=== PATIENT | female | born 1955 | race Caucasian/White ===

== ENCOUNTER → 2018-12-18 09:59 | Outpatient (CLI) | payer BC, SELFPAY ==
--- NOTE | 2018-12-18 | DI.RAD.S_ITS ---
PROCEDURE: XR KUB INDICATIONS: KIDNEY STONES TECHNIQUE: One view of the abdomen acquired. COMPARISON: Outside Facility, RG, CT ABDOMEN/PELVIS WITHOUT CONTRAST, 12/02/2018, 9:01. [facility], CR, XR ABDOMEN 1 VIEW, 12/11/2018, 11:20. FINDINGS: Surgical changes and devices: None. Bowel: Bowel gas pattern is normal. Soft tissues: Interval placement of a left double-J eral stent. Unchanged position of 6 mm proximal left ureter stone. Bones: No suspicious bony lesions. IMPRESSION: Interval placement of a left double-J ureteral stent. Continued presence of a proximal left ureteral stone. Dictated by: Gumaro Wheatley M.D. on 12/18/2018 at 16:59 Approved by: Gumaro Wheatley M.D. on 12/18/2018 at 17:01
== END ==
PROVIDERS: Family Provider Internal Medicine; PCP Internal Medicine; Visit Provider Specialist
DX: N20.1 Calculus of ureter (principal); Z96.0 Presence of urogenital implants
CPT/HCPCS: 74018

== ENCOUNTER → 2019-01-09 10:38 | Outpatient (CLI) | payer BC, SELFPAY ==
--- NOTE | 2019-01-09 | DI.RAD.S_ITS ---
PROCEDURE: XR KUB INDICATIONS: KIDNEY STONES TECHNIQUE: One view of the abdomen acquired. COMPARISON: [facility], CR, XR KUB, 12/18/2018, 10:10. FINDINGS: Surgical changes and devices: Status post removal of left-sided ureteral stent. Bowel: Bowel gas pattern is normal. Soft tissues: No definite suspicious abdominal calcifications. However exam limited by overlying stool Visualized solid organ contours appear normal in size. Few pelvic phleboliths are unchanged. Bones: No suspicious bony lesions. Diffuse spondylosis and mild lateral curvature of the spine IMPRESSION: No definite radiographically visualized urolithiasis however severely suboptimal examination due to overlying stool Dictated by: Ramone Royal M.D. on 01/09/2019 at 12:41 Approved by: Ramone Royal M.D. on 01/09/2019 at 12:43
[2019-01-09 11:41] LABS: Calcium 9.8 mg/dL (8.4-10.2); Uric Acid 3.6 mg/dL (2.5-6.2)
[2019-01-13 14:11] LABS: Parathyroid Hormone Int 30 pg/mL (14-64)
== END ==
PROVIDERS: Family Provider Internal Medicine; PCP Internal Medicine; Visit Provider Specialist
DX: N20.0 Calculus of kidney (principal)
CPT/HCPCS: 36415; 74018; 82310; 83970; 84550

== ENCOUNTER → 2019-09-12 14:56 | Outpatient (CLI) | payer BC, SELFPAY | PROVIDERS: Family Provider Internal Medicine; PCP Internal Medicine; Referring Provider Internal Medicine; Visit Provider Internal Medicine | DX: M85.88 Other specified disorders of bone density and structure, other site (principal); Z78.0 Asymptomatic menopausal state; F17.200 Nicotine dependence, unspecified, uncomplicated | CPT/HCPCS: 77080 ==

== ENCOUNTER → 2021-05-29 12:38 | Outpatient (ROUT) | payer MEDICARE, OTHER, SELFPAY ==
[2021-05-29 12:50] LABS: INR 0.9 (0.9-1.3); Prothrombin Time 10.2 SECONDS (10.1-12.7)
== END ==
PROVIDERS: Family Provider Internal Medicine; PCP Internal Medicine; Visit Provider Internal Medicine Gastroenterology
DX: B19.20 Unspecified viral hepatitis C without hepatic coma (principal)
CPT/HCPCS: 85610

== ENCOUNTER → 2022-02-09 12:50 | Outpatient (CLI) | payer MEDICARE, OTHER, SELFPAY ==
--- NOTE | 2022-02-09 12:57 | DI.RAD.S_ITS ---
PROCEDURE: XR DEXA AXIAL SKELETON INDICATIONS: OSTEOPOROSIS SCREENING COMPARISON: [facility], CR, XR DEXA AXIAL SKELETON, 09/12/2019, 15:15. [facility], CR, DEXA AXIAL SKELETON, 01/27/2017, 13:42. FINDINGS: This blank DEXA report has been sent in error by the PACS system. The correct and complete report will be forthcoming in 1-2 days. Thank you for your patience and understanding. Dictated by: Sadie Franco M.D. on 02/09/2022 at 14:13 Approved by: Sadie Franco M.D. on 02/09/2022 at 14:14
== END ==
PROVIDERS: Family Provider Internal Medicine; PCP Internal Medicine; Referring Provider Internal Medicine; Visit Provider Internal Medicine
DX: Z78.0 Asymptomatic menopausal state (principal); Z13.820 Encounter for screening for osteoporosis; M85.852 Other specified disorders of bone density and structure, left thigh
CPT/HCPCS: 77080

== ENCOUNTER → 2023-06-03 08:13 | Outpatient (CLI) | payer MEDICARE, OTHER, SELFPAY | LOC: RESP 08:14 | PROVIDERS: Family Provider Internal Medicine; PCP Internal Medicine; Referring Provider Internal Medicine; Visit Provider Internal Medicine | DX: J44.9 Chronic obstructive pulmonary disease, unspecified (principal); F17.210 Nicotine dependence, cigarettes, uncomplicated | CPT/HCPCS: 94060; 94726; 94729 ==

== ENCOUNTER → 2023-07-08 08:36 | Outpatient (CLI) | payer MEDICARE, OTHER, SELFPAY ==
--- NOTE | 2023-07-08 21:00 | DI.NM.S_ITS ---
DATE OF SERVICE: 07/08/2023 PROCEDURE: Exercise perfusion study. INDICATIONS: LAD atherosclerosis, hyperlipidemia, COPD, shortness of breath. RADIOPHARMACEUTICAL: 25.2 millicuries technetium-99m Myoview IV was injected at stress and 11.7 millicuries technetium-99m Myoview IV was injected at rest. CARDIAC STRESS: The patient underwent exercise perfusion study under the supervision of an attending staff. She walked on Pavel protocol for 6 minutes and 01 second, achieved 7 METS of workload, LINDSAY -2%, maximum heart rate 151, which was 97% of target heart rate. Resting blood pressure 142/90 and peak blood pressure 202/100 mmHg. Baseline rhythm was sinus. During stress, no convincing ischemic changes seen, no significant arrhythmias, no chest discomfort. Had shortness of breath. RAW DATA: There is increased subdiaphragmatic activity. GATED STUDY: Resting LV ejection fraction 71% and stress LV ejection fraction 74%. No obvious wall motion abnormalities. Resting end- diastolic volume 97 mL. TID ratio 0.81, which is within normal limits. Lung/heart ratio 0.46, which is mildly abnormal. MYOCARDIAL PERFUSION SCAN: Resting supine images revealed moderate size, mildly decreased perfusion of the inferior wall. Stress supine images revealed small size, mildly decreased perfusion of the basal inferior wall. During stress prone images, complete resolution of inferior wall defect. No convincing ischemia or infarction. CONCLUSION: This is a normal myocardial perfusion study with evidence of tissue attenuation artifact, which got resolved during the stress prone images. Summed stress score and rest score is zero. Fair exercise tolerance. Mildly hypertensive blood pressure response. Preserved LV function. No significant arrhythmias. No chest pain. The patient had shortness of breath during exercise. As far as perfusion scan is concerned, this is a low-risk myocardial perfusion scan. The patient also has mildly abnormal lung/heart ratio, consider 2D echo to make sure there is no valvular pathology or diastolic dysfunction. Duglas Nita - MERCEDES/rosibel/TEJINDER doc#: [id number]/job#: [id number] dd: 07/08/2023 16:46:00 dt: 07/08/2023 19:33:00 DICTATING MD/COPIES TO: Sebastian Chandler MD COPIES MNE: RICHARD;
== END ==
PROVIDERS: Family Provider Internal Medicine; PCP Internal Medicine; Referring Provider Internal Medicine; Visit Provider Internal Medicine
DX: I25.10 Atherosclerotic heart disease of native coronary artery without angina pectoris (principal); E78.5 Hyperlipidemia, unspecified; J44.9 Chronic obstructive pulmonary disease, unspecified; R06.02 Shortness of breath
CPT/HCPCS: 78452; 93017; A9502

== ENCOUNTER → 2024-04-18 11:37 | Outpatient (CLI) | payer MEDICARE, OTHER, SELFPAY ==
--- NOTE | 2024-04-18 11:40 | DI.RAD.S_ITS ---
PROCEDURE: XR DEXA AXIAL SKELETON INDICATIONS: POSTMENOPAUSAL COMPARISON: Merged With [facility], , XR DEXA AXIAL SKELETON, 02/09/2022, 13:16. FINDINGS: Lumbar Spine: Bone mineral density is 0.845 (previously 0.968) g/cm2, T score -1.2 (previously-0.7). Left Femoral Neck: Bone mineral density 0.753 (previously 0.745) g/cm2, T score -0.9 (previously-0.9) Left Hip: Bone mineral density 0.760 (previously 0.779) g/cm2, T score -1.5 (previously-1.3). Fracture Risk Calculation (when applicable): 10-year fracture risk of a major osteoporotic fracture 8.4 percent and of a hip fracture 1.5 percent. (T score greater or equal to -1.0 to: NORMAL) (T score from -1.1 to -2.4: OSTEOPENIA) (T score less than or equal to -2.5: OSTEOPOROSIS) IMPRESSION: Osteopenia---recommend repeat DEXA in 2-3 years for reassessment. Follow-up guidelines as follows: Osteoporosis: Consider a repeat DEXA and Vertebral Fracture Assessment (VFA) exam in 2 years or sooner if medically necessary, to reassess this patient's status. Osteopenia: Consider a repeat DEXA in 2-3 years to reassess this patient's status, or if there is a new clinical indication. Normal: Consider a repeat DEXA in 5 years or sooner, or if there is a new clinical indication. All treatment decisions require clinical judgment and consideration of individual patient factors, including patient preferences, comorbidities, previous drug use, risk factors not captured in the FRAX model (e.g., frailty, falls, vitamin D deficiency, increased bone turnover, interval significant decline in bone density ) and possible under- or over-estimation of fracture risk by FRAX. In addition, the NOF Guide recommends that FDA-approved medical therapies be considered in postmenopausal women and men age >= 50 years with a: * Hip or vertebral (clinical or morphometric) fracture * T-score of <=-2.5 at the spine or hip * Ten-year fracture probability by FRAX of >= 3% for hip fracture or >=20% for major osteoporotic fracture. Dictated by: Mega Baker M.D. on 04/19/2024 at 3:16 Approved by: Mega Baker M.D. on 04/19/2024 at 3:18
== END ==
PROVIDERS: Family Provider Internal Medicine; PCP Registered Nurse; Referring Provider Internal Medicine; Visit Provider Internal Medicine
DX: M85.89 Other specified disorders of bone density and structure, multiple sites (principal); Z78.0 Asymptomatic menopausal state
CPT/HCPCS: 77080